=== PATIENT | male | born 1995 | race Caucasian/White ===

== ENCOUNTER → 2016-04-03 | Outpatient (CLI) | payer OTHER ==
--- NOTE | 2016-04-04 07:46 | XR ---
EXAMINATION TYPE: XR chest 2V DATE OF EXAM: 04/03/2016 4:44 PM COMPARISON: NONE HISTORY: Cough FINDINGS: The lungs are clear and there is no pneumothorax, pleural effusion, or focal pneumonia. IMPRESSION: 1. No acute process.
== END | disposition home or self-care (01) ==
LOC: RADXRYALE 16:33
PROVIDERS: ATTEND Internal Medicine
DX: R05 Cough (principal)
CPT/HCPCS: 71020

== ENCOUNTER 2018-09-25 13:25 | Emergency (ER) | payer SELFPAY ==
[2018-09-25 13:56] VITALS: BP 113/70; PULSE 54; RESP 16; TEMP 98
--- NOTE | 2018-09-25 15:41 | CT ---
EXAMINATION TYPE: CT brain wo con DATE OF EXAM: 09/25/2018 COMPARISON: None HISTORY: Left frontal injury 2 days ago. Dizziness, headache and blurred vision. CT DLP: 1099.4 mGycm. Automated Exposure Control for Dose Reduction was Utilized. TECHNIQUE: CT scan of the head is performed without contrast. FINDINGS: There is no acute intracranial hemorrhage, mass effect, or midline shift identified. The ventricles and sulci are within normal limits in size. The globes are intact and the visualized sin uses are clear. Prominent posterior fossa arachnoid cyst, or giant cisterna magna noted. IMPRESSION: No acute intracranial hemorrhage, mass effect, or midline shift is seen. Prominent posterior fossa cy st differential diagnosis includes giant cisterna magna versus arachnoid cyst.
[2018-09-25] MEDS ORDERED: KETOROLAC 60 MG/2 ML VIAL IM STA (15:58)
--- NOTE | 2018-09-25 16:31 | ED ---
Headache HPI - General Chief Complaint: Headache Stated Complaint: Headache, head injury 2 days ago Time Seen by Provider: 09/25/18 14:16 Mode of arrival: ambulatory Limitations: no limitations - History of Present Illness Initial Comments: 23-year-old male presenting today for chief complaint of headache after head injury. Patient states he struck the left side of his forehead 2 days prior at work. He states it was when he went from sitting to standing and hit his head on a metal object. Denies laceration loss of consciousness. He states that he has had a headache since that seemed to increase yesterday. Patient is primary care provider who recommended transfer to the emergency department for further evaluation recommending CT scan of the head. Patient denies any vomiting. He denies nausea neck pain or fall. Denies visual changes speech changes weakness of the upper or lower extremities or any sensation deficits. Patient appears well upon arrival no other complaints. Patient is accompanied by his mother. - Related Data Home Medications Medication Instructions Recorded Confirmed Acetaminophen Tab [Tylenol Tab] 1,000 mg PO Q6HR PRN 09/25/18 09/25/18 Allergies Allergy/AdvReac Type Severity Reaction Status Date / Time No Known Allergies Allergy Verified 09/25/18 14:16 Review of Systems ROS Statement: Those systems with pertinent positive or pertinent negative responses have been documented in the HPI. ROS Other: All systems not noted in ROS Statement are negative. Past Medical History Past Medical History: Asthma History of Any Multi-Drug Resistant Organisms: None Reported Past Surgical History: No Surgical Hx Reported Past Psychological History: No Psychological Hx Reported Smoking Status: Current every day smoker Past Alcohol Use History: Occasional Past Drug Use History: Marijuana General Exam - General Exam Comments Initial Comments: General: The patient is awake and alert, in no distress, and does not appear acutely ill. Eye: +3 mm pupils are equal, round and reactive to light, extra-ocular movements are intact. No nystagmus. There is normal conjunctiva bilaterally. No signs of icterus. Ears, nose, mouth and throat: There are moist mucous membranes and no oral lesions. Neck: The neck is supple, there is no tenderness or JVD. Cardiovascular: There is a regular rate and rhythm. No murmur, rub or gallop is appreciated. Respiratory: Lungs are clear to auscultation, respirations are non-labored, breath sounds are equal. No wheezes, stridor, rales, or rhonchi. Musculoskeletal: Normal ROM, no tenderness. Strength 5/5. Sensation intact. Pulses equal bilaterally 2+. Neurological: A&O x 3. CN II-XII intact, memory intact to immediately, intermediate and prison recall. Able to follow simple verbal. Able to name a common object (pen). High quality, labial (pa) and lingual (la) speech. Low quality posterior pharynx/larynx (ga) voice sounds. Able to express general knowledge (days in a week). No hemineglect or inattention noted. Finger agnosia (-) and spatially oriented (identified L index finger touched R shoulder with L index finger). Light touch and temperature sensation present over the face, chest, abdomen, back, UE bilaterally, and LE bilaterally. Able to localize point during point localization b/l and extinction. No visible bulk atrophy, hypertrophy, fasciculations, or myoclonus of the UE or LE b/l. Full PROM in UE and LE b/l. Bilateral muscle strength 5/5 for the following muscles: deltoid, biceps, triceps, brachioradialis, wrist extensors/flexor, hip flexor, hip abductors/adductors, hamstrings, quadriceps, feet dorsiflexors/plantar flexors. Finger to nose, finger to the examiners finger, and heel to gupta coordinated and accurate b/l. Coordinated and even demonstration of hand flip, finger to thumb, and toe tap b/l.(-) primitive reflexes. Gait is coordinated and even in stride with tandem, toe and heel walk. Maintains balance with monopedal stance. (-) Romberg. (-) pronator drift. No nuchal rigidity. Skin: Skin is warm and dry and no rashes or lesions are noted. Psychiatric: Cooperative, appropriate mood & affect, normal judgment. Limitations: no limitations Course Vital Signs 09/25/18 13:50 Temperature 98.0 F Pulse Rate 54 L Respiratory 16 Rate Blood Pressure 113/70 O2 Sat by Pulse 100 Oximetry Medical Decision Making - Medical Decision Making 23-year-old male presenting for evaluation of headache. Patient states it began after head injury. Patient denies vomiting visual changes. No focal neurological deficits on extensive neurological examination. Patient states that he was sent for a CT of his brain. CT of the brain revealed incidental finding of a enlarged cisterna versus a subarachnoid cyst. I did discuss this finding with patient as well as appropriate follow-up with primary care provider. Otherwise at this time patient states that his headache has been completely alleviated by Toradol. He states he is ready to go home. No additional complaints. Patient appears well. I discussed return parameters patient verbalizes understanding. Discussed the case with him provider Dr. Jenkins was agreeable care plan and discharge. Disposition Clinical Impression: Headache, Head injury, Concussion Disposition: HOME SELF-CARE Condition: Good Instructions (If sedation given, give patient instructions): Concussion (ED) Additional Instructions: Please use medication as discussed. Please follow-up with family doctor in the next 2 days, please contact sports or activities with increased risk of head injury. must be approved for contact sports by primary care provider and have repeat neuro exam and 48 hours. Please return to emergency room if the symptoms increase or worsen or for any other concerns. Is patient prescribed a controlled substance at d/c from ED?: No Referrals: Claudine Menjivar MD [Primary Care Provider] - 1-2 days Time of Disposition: 16:32
== END 2018-09-25 16:44 | disposition home or self-care (01) ==
LOC: EC 13:25
DX: S06.0X0A Concussion without loss of consciousness, initial encounter (principal); F17.200 Nicotine dependence, unspecified, uncomplicated; W22.8XXA Striking against or struck by other objects, initial encounter; Y92.69 Other specified industrial and construction area as the place of occurrence of the external cause; Y99.0 Civilian activity done for income or pay
CPT/HCPCS: 70450; 96372; 99283; J1885

== ENCOUNTER 2018-10-12 20:05 | Emergency (ER) | payer SELFPAY ==
[2018-10-12 20:24] VITALS: BP 124/71; PULSE 89; RESP 16; TEMP 98.6
[2018-10-12] MEDS ORDERED: KETOROLAC 30 MG/ML 1 ML VIAL IM STA (20:48)
--- NOTE | 2018-10-12 21:11 | ED ---
General Adult HPI - General Chief complaint: Extremity Injury, Upper Stated complaint: Left elbow pain Time Seen by Provider: 10/12/18 20:29 Source: patient Mode of arrival: ambulatory Limitations: no limitations - History of Present Illness Initial comments: Patient is a 23-year-old male presenting to emergency Department with a chief complaint of left elbow pain. Patient reports he was working on his car when the pliers he was using slipped and causing him to hit his elbow on the wheel Studs. Patient reports patient reports the pain is worse on the posterior aspect of the left elbow with a trauma code. Patient denies any abrasions or lacerations at the site of injury. Patient denies any numbness or tingling patient reports that he is unable to fully extend the elbow although he does have almost full range of motion in the elbow. Patient has full range of motion in the hand. Patient denies taking any medication to alleviate the symptoms. Patient denies any edema, erythema or skin discoloration. - Related Data Home Medications Medication Instructions Recorded Confirmed Acetaminophen Tab [Tylenol Tab] 1,000 mg PO Q6HR PRN 09/25/18 09/25/18 Allergies Allergy/AdvReac Type Severity Reaction Status Date / Time No Known Allergies Allergy Verified 10/12/18 20:24 Review of Systems ROS Statement: Those systems with pertinent positive or pertinent negative responses have been documented in the HPI. ROS Other: All systems not noted in ROS Statement are negative. Past Medical History Past Medical History: Asthma History of Any Multi-Drug Resistant Organisms: None Reported Past Surgical History: No Surgical Hx Reported Past Psychological History: No Psychological Hx Reported Smoking Status: Current every day smoker Past Alcohol Use History: Occasional Past Drug Use History: Marijuana General Exam - General Exam Comments Initial Comments: General: Well-developed well-nourished distress HEENT: Normocephalic/atraumatic, PERLL, pharynx erythema, swallowing well, EAC no erythema, no exudates, TM clear, no cervical lymph nodes Neck: Supple, nontender, trachea midline Chest/Lungs: Normal respirations, no signs of respiratory distress clear to auscultation bilaterally no wheezes, rales, rhonchi Cardiac: Regular rate and rhythm, normal S1-S2, no murmurs rubs or gallops Abdomen/GI: Soft nontender, bowel sounds equal or quadrant x4, no guarding, no rebound no CVA tenderness Musculoskeletal: Tenderness along the posterior lateral aspect of the left elbow, pain with palpation, limited range of motion with full extension, +2 uln ar radial pulses, no edema erythema or skin discoloration, no abrasions or lacerations, full range of motion in the hand. Skin: Warmth, no rashes or lesions, no cyanosis or diaphoresis Neurologic: AAO x 3, CN 2-12 intact, Psychiatric: Mood and affect normal, judgment normal Limitations: no limitations Course Vital Signs 10/12/18 20:22 Temperature 98.6 F Pulse Rate 89 Respiratory 16 Rate Blood Pressure 124/71 O2 Sat by Pulse 98 Oximetry Medical Decision Making - Medical Decision Making Patient is 23-year-old male presenting to emergency Department with a chief complaint of left elbow pain. X-ray of the left elbow is negative for acute fracture or dislocations. Based on history and physical examination and imaging I suspect the patient to have suffered a contusion to the left elbow. Mil wrap was applied and patient was given a sling. Patient advised to alternate between Tylenol and ibuprofen for pain control. Patient advised to apply ice compress to minimize symptoms. Strict return parameters were thoroughly discussed with patient and understanding and agreeable. Patient was to follow with orthopedic. Case discussed with physician. Disposition Clinical Impression: Contusion of elbow, left Disposition: HOME SELF-CARE Condition: Stable Instructions (If sedation given, give patient instructions): Elbow Sprain (ED) Additional Instructions: Alternate between Tylenol and ibuprofen for pain control. Apply ice compress to minimize symptoms. Please follow with orthopedics if symptoms not improved. Please return to emergency department if symptoms worsen. Is patient prescribed a controlled substance at d/c from ED?: No Referrals: Claudine Menjivar MD [Primary Care Provider] - 1-2 days Jp Dozier MD [STAFF PHYSICIAN] - 1-2 days Time of Disposition: 21:56
--- NOTE | 2018-10-12 21:17 | XR ---
EXAMINATION TYPE: XR elbow complete LT DATE OF EXAM: 10/12/2018 COMPARISON: NONE HISTORY: Elbow pain TECHNIQUE: 3 views FINDINGS: I see no fracture nor dislocation. Joint spaces are normal. There is no sign of elbow joint effusion. IMPRESSION: Negative left elbow exam.
== END 2018-10-12 22:06 | disposition home or self-care (01) ==
LOC: EC 20:05
DX: S50.02XA Contusion of left elbow, initial encounter (principal); F17.200 Nicotine dependence, unspecified, uncomplicated; W22.8XXA Striking against or struck by other objects, initial encounter; Y93.89 Activity, other specified; Y92.009 Unspecified place in unspecified non-institutional (private) residence as the place of occurrence of the external cause
CPT/HCPCS: 73080; 99283; 96372; J1885

== ENCOUNTER 2019-08-07 20:09 | Emergency (ER) | payer OTHER ==
[2019-08-07 20:24] VITALS: RESP 18; TEMP 96.9
[2019-08-07] MEDS ORDERED: SODIUM CHLORIDE 0.9% 1,000 ML IV ONE (21:24)
--- NOTE | 2019-08-07 22:03 | CT ---
EXAMINATION TYPE: CT brain jayine wo con DATE OF EXAM: 08/07/2019 COMPARISON: CT brain 09/25/2018 HISTORY: posterior head injury, headache Neck pain CT DLP: 1273.5 mGycm Automated exposure control for dose reduction was used. Ventricles and sulci appear normal. There is no mass effect nor midline shift. There is no sign of in tracranial hemorrhage. The calvarium is intact. There is large cisterna magna which is normal variati on. Skull base is intact. The cervical vertebra have normal spacing and alignment. Posterior elements are intact. Facet joints appear normal. IMPRESSION: Normal CT scan of the brain. Normal CT scan cervical spine.
[2019-08-07 22:06] VITALS: PULSE 57
[2019-08-07 22:38] LABS: Basophils # (A) 0.1 k/uL (0-0.2); Basophils % (A) 1 %; Eosinophils # (A) 0.6 k/uL (0-0.7); Eosinophils % (A) 7 %; HCT 46.7 % (39.0-53.0); HGB 15.2 gm/dL (13.0-17.5); Lymphocytes # (A) 3.4 k/uL (1.0-4.8); Lymphocytes % (A) 44 %; MCH 31.3 pg (25.0-35.0); MCHC 32.4 g/dL (31.0-37.0); MCV 96.4 fL (80.0-100.0); Monocytes # (A) 0.4 k/uL (0-1.0); Monocytes % (A) 5 %; Neutrophils # (A) 3.1 k/uL (1.3-7.7); Neutrophils % (A) 40 %; Platelet Count 183 k/uL (150-450); RBC 4.85 m/uL (4.30-5.90); RDW 12.4 % (11.5-15.5); WBC 7.7 k/uL (3.8-10.6)
[2019-08-07 22:45] VITALS: BP 121/71
[2019-08-07 22:46] LABS: ALT 14 U/L (4-49); AST 40 U/L (17-59); African American GFR (CKD) >90 (>60 ml/min/1.73 sqM); Albumin 4.5 g/dL (3.5-5.0); Alkaline Phosphatase 68 U/L (38-126); Anion Gap 8 mmol/L; Blood Urea Nitrogen 15 mg/dL (9-20); Calcium 9.6 mg/dL (8.4-10.2); Carbon Dioxide 23 mmol/L (22-30); Chloride 106 mmol/L (98-107); Glucose 91 mg/dL (74-99); Magnesium 1.8 mg/dL (1.6-2.3); Non-African American GFR(CKD) >90 (>60 ml/min/1.73 sqM); Phosphorus 3.7 mg/dL (2.5-4.5); Potassium 4.1 mmol/L (3.5-5.1); Sodium 137 mmol/L (137-145); Total Bilirubin 1.1 mg/dL (0.2-1.3); Total Protein 7.7 g/dL (6.3-8.2)
[2019-08-07 23:07] LABS: Appearance,Urine Clear (Clear); Bilirubin,Urine Negative (Negative); Blood,Urine Negative (Negative); Color,Urine Light Yellow; Glucose,Urine (UA) Negative (Negative); Ketones,Urine Negative (Negative); Leukocyte Esterase,Urine Negative (Negative); Nitrite,Urine Negative (Negative); Protein,Urine Negative (Negative); Specific Gravity,Urine 1.008 (1.001-1.035); Urobilinogen,Urine <2.0 mg/dL (<2.0)
[2019-08-07 23:21] LABS: Amphetamine Screen,Urine Not Detected (NotDetected); Barbiturate Screen,Urine Not Detected (NotDetected); Benzodiazepines Screen,Urine Not Detected (NotDetected); Cocaine Screen,Urine Not Detected (NotDetected); Methadone Screen, Urine Not Detected (NotDetected); Opiate Screen,Urine Not Detected (NotDetected); Oxycodone Screen, Urine Not Detected (NotDetected); Phencyclidine Screen,Urine Not Detected (NotDetected); Tricyclic Antidepressant,Urine Not Detected (NotDetected); Urn Cannabinoid Scrn Detected (NotDetected)
--- NOTE | 2019-08-08 00:21 | ED ---
General Adult HPI - General Chief complaint: Head Injury Stated complaint: Syncope Time Seen by Provider: 08/07/19 21:06 Source: patient, RN notes reviewed, old records reviewed Mode of arrival: ambulatory Limitations: no limitations - History of Present Illness Initial comments: 24-year-old male patient presents to ED for evaluation of head injury. Patient reports that 2 days ago he was pulling on a wrench when slipped free. Patient reports that he pulled his head back to avoid being had any hit the back of his head on a piece of metal. Patient denies any loss of consciousness but does report that he has had some dizziness and some very mild waxing and waning blurry vision. 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 He reports that after exerting himself he was walking to leave and he began to feel very dizzy. Patient reports that he sat down on the ground had some blurred vision and his legs are weak when he tried to stand. This lasted approximately half an hour. Reportedly then felt better and went home. Patient states that he had a very mild headache this morning which is since resolved. Also some mild blurred vision which resolved. Denies any current complaints at this time. Systemic: Pt denies fatigue, fever/chills, rash. Pt denies weakness, night sweats, weight loss. Neuro: Pt denies headache, syncope. HEENT: Pt denies ocular discharge or irritation, otalgia, rhinorrhea, phary ngitis or notable lymphadenopathy. Cardiopulmonary: Pt denies chest pain, SOB, heart palpitations, dyspnea on exertion. Abdominal/GI: Pt denies abdominal pain, n/v/d. : Pt denies dysuria, burning w/ urination, frequency/urgency. Denies new onset urinary or bowel incontinence. MSK: Pt denies myalgia, loss of strength or function in extremities. Neuro: Pt denies new onset weakness, paresthesias. - Related Data Home Medications Medication Instructions Recorded Confirmed Acetaminophen Tab [Tylenol Tab] 1,000 mg PO Q6HR PRN 09/25/18 09/25/18 Allergies Allergy/AdvReac Type Severity Reaction Status Date / Time No Known Allergies Allergy Verified 08/07/19 20:24 Review of Systems ROS Statement: Those systems with pertinent positive or pertinent negative responses have been documented in the HPI. ROS Other: All systems not noted in ROS Statement are negative. Past Medical History Past Medical History: Asthma History of Any Multi-Drug Resistant Organisms: None Reported Past Surgical History: No Surgical Hx Reported Past Psychological History: No Psychological Hx Reported Smoking Status: Current every day smoker Past Alcohol Use History: Occasional Past Drug Use History: Marijuana General Exam - General Exam Comments Initial Comments: Constitutional: NAD, AOX3, Pt has pleasant affect. HEENT: NC/AT, trachea midline, neck supple, no lymphadenopathy. Posterior pharynx non erythematous, without exudates. External ears appear normal, without discharge. Mucous membranes moist. Eyes PERRLA, EOM intact. There is no scleral icterus. No pallor noted. Cardiopulmonary: RRR, no murmurs, rubs or gallops, no JVD noted. Lungs CTAB in anterior and posterior emery. No peripheral edema. Abdominal exam: Abdomen soft and non-distended. Abdomen non-tender to palpation in all 4 quadrants. Bowel sounds active in LLQ. No hepatosplenomegaly. No ecchymosis Neuro: CN II-XII intact. No nuchal rigidity. No raccon eyes, no piña sign. No cervical spinal tenderness. MSK: No posterior calf tenderness bilaterally, homans sign negative bilaterally. Posterior tibialis and radial pulse +2 bilaterally. Sensation intact in upper and lower extremities. Full active ROM in upper and lower extremities, 5/5 stregnth. Limitations: no limitations Course Vital Signs 08/07/19 08/07/19 08/07/19 20:22 21:51 22:00 Temperature 96.9 F L Pulse Rate 93 60 58 L Respiratory 18 Rate Blood Pressure 119/77 124/85 124/85 O2 Sat by Pulse 100 98 98 Oximetry 08/07/19 08/07/19 22:05 22:30 Temperature Pulse Rate 57 L 57 L Respiratory 18 Rate Blood Pressure 121/70 121/71 O2 Sat by Pulse 98 97 Oximetry Medical Decision Making - Medical Decision Making 24-year-old male patient presents to ED for evaluation of head injury. Patient reports that 2 days ago he was pulling on a wrench when slipped free. Patient reports that he pulled his head back to avoid being had any hit the back of his head on a piece of metal. Patient denies any loss of consciousness but does report that he has had some dizziness and some very mild waxing and waning blurry vision. 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 He reports that after exerting himself he was walking to leave and he began to feel very dizzy. Patient reports that he sat down on the ground had some blurred vision and his legs are weak when he tried to stand. This lasted approximately half an hour. Reportedly then felt better and went home. Patient states that he had a very mild headache this morning which is since resolved. Also some mild blurred vision which resolved. Denies any current complaints at this time. Patient will signs are stable, afebrile. Physical exam did not display acute pathology. Neurologic exam is intact. Repeat neurologic exam prior discharged is also intact. Laboratory investigations are nonimmpressive. Tox screen is positive for THC. CT brain C- spine did not display acute process. Patient states that he is not having any complaints at this time. Patient discharged to follow up with primary care provider and will return to ER if condition worsens. Case discussed with Dr. Bautista. - Lab Data Result diagrams: 08/07/19 22:00 08/07/19 22:00 Lab Results 08/07/19 08/07/19 08/07/19 Range/Units 22:00 22:00 22:00 WBC 7.7 (3.8-10.6) k/uL RBC 4.85 (4.30-5.90) m/uL Hgb 15.2 (13.0-17.5) gm/dL Hct 46.7 (39.0-53.0) % MCV 96.4 (80.0-100.0) fL MCH 31.3 (25.0-35.0) pg MCHC 32.4 (31.0-37.0) g/dL RDW 12.4 (11.5-15.5) % Plt Count 183 (150-450) k/uL Neutrophils % 40 % Lymphocytes % 44 % Monocytes % 5 % Eosinophils % 7 % Basophils % 1 % Neutrophils # 3.1 (1.3-7.7) k/uL Lymphocytes # 3.4 (1.0-4.8) k/uL Monocytes # 0.4 (0-1.0) k/uL Eosinophils # 0.6 (0-0.7) k/uL Basophils # 0.1 (0-0.2) k/uL Sodium 137 (137-145) mmol/L Potassium 4.1 (3.5-5.1) mmol/L Chloride 106 (98-107) mmol/L Carbon Dioxide 23 (22-30) mmol/L Anion Gap 8 mmol/L BUN 15 (9-20) mg/dL Creatinine 0.84 (0.66-1.25) mg/dL Est GFR (CKD-EPI)AfAm >90 (>60 ml/min/1.73 sqM) Est GFR (CKD-EPI)NonAf >90 (>60 ml/min/1.73 sqM) Glucose 91 (74-99) mg/dL Calcium 9.6 (8.4-10.2) mg/dL Phosphorus 3.7 (2.5-4.5) mg/dL Magnesium 1.8 (1.6-2.3) mg/dL Total Bilirubin 1.1 (0.2-1.3) mg/dL AST 40 (17-59) U/L ALT 14 (4-49) U/L Alkaline Phosphatase 68 (38-126) U/L Troponin I <0.012 (0.000-0.034) ng/mL Total Protein 7.7 (6.3-8.2) g/dL Albumin 4.5 (3.5-5.0) g/dL Urine Color Urine Appearance (Clear) Urine pH (5.0-8.0) Ur Specific [place] (1.001-1.035) Urine Protein (Negative) Urine Glucose (UA) (Negative) Urine Ketones (Negative) Urine Blood (Negative) Urine Nitrite (Negative) Urine Bilirubin (Negative) Urine Urobilinogen (<2.0) mg/dL Ur Leukocyte Esterase (Negative) Urine Opiates Screen (NotDetected) Ur Oxycodone Screen (NotDetected) Urine Methadone Screen (NotDetected) Ur Propoxyphene Screen (NotDetected) Ur Barbiturates Screen (NotDetected) U Tricyclic Antidepress (NotDetected) Ur Phencyclidine Scrn (NotDetected) Ur Amphetamines Screen (NotDetected) U Methamphetamines Scrn (NotDetected) U Benzodiazepines Scrn (NotDetected) Urine Cocaine Screen (NotDetected) U Marijuana (THC) Screen (NotDetected) 08/07/19 Range/Units 22:59 WBC (3.8-10.6) k/uL RBC (4.30-5.90) m/uL Hgb (13.0-17.5) gm/dL Hct (39.0-53.0) % MCV (80.0-100.0) fL MCH (25.0-35.0) pg MCHC (31.0-37.0) g/dL RDW (11.5-15.5) % Plt Count (150-450) k/uL Neutrophils % % Lymphocytes % % Monocytes % % Eosinophils % % Basophils % % Neutrophils # (1.3-7.7) k/uL Lymphocytes # (1.0-4.8) k/uL Monocytes # (0-1.0) k/uL Eosinophils # (0-0.7) k/uL Basophils # (0-0.2) k/uL Sodium (137-145) mmol/L Potassium (3.5-5.1) mmol/L Chloride (98-107) mmol/L Carbon Dioxide (22-30) mmol/L Anion Gap mmol/L BUN (9-20) mg/dL Creatinine (0.66-1.25) mg/dL Est GFR (CKD-EPI)AfAm (>60 ml/min/1.73 sqM) Est GFR (CKD-EPI)NonAf (>60 ml/min/1.73 sqM) Glucose (74-99) mg/dL Calcium (8.4-10.2) mg/dL Phosphorus (2.5-4.5) mg/dL Magnesium (1.6-2.3) mg/dL Total Bilirubin (0.2-1.3) mg/dL AST (17-59) U/L ALT (4-49) U/L Alkaline Phosphatase (38-126) U/L Troponin I (0.000-0.034) ng/mL Total Protein (6.3-8.2) g/dL Albumin (3.5-5.0) g/dL Urine Color Light Yellow Urine Appearance Clear (Clear) Urine pH 6.0 (5.0-8.0) Ur Specific [place] 1.008 (1.001-1.035) Urine Protein Negative (Negative) Urine Glucose (UA) Negative (Negative) Urine Ketones Negative (Negative) Urine Blood Negative (Negative) Urine Nitrite Negative (Negative) Urine Bilirubin Negative (Negative) Urine Urobilinogen <2.0 (<2.0) mg/dL Ur Leukocyte Esterase Negative (Negative) Urine Opiates Screen Not Detected (NotDetected) Ur Oxycodone Screen Not Detected (NotDetected) Urine Methadone Screen Not Detected (NotDetected) Ur Propoxyphene Screen Not Detected (NotDetected) Ur Barbiturates Screen Not Detected (NotDetected) U Tricyclic Antidepress Not Detected (NotDetected) Ur Phencyclidine Scrn Not Detected (NotDetected) Ur Amphetamines Screen Not Detected (NotDetected) U Methamphetamines Scrn Not Detected (NotDetected) U Benzodiazepines Scrn Not Detected (NotDetected) Urine Cocaine Screen Not Detected (NotDetected) U Marijuana (THC) Screen Detected H (NotDetected) - EKG Data -: EKG Interpreted by Me (and Dr. Bautista ) EKG Comments: Ventricular rate 57, NE interval 134, QRS 100, QT/QTC 398/37. Sinus bradycardia, rightward axis, borderline EKG. No concern for acute ischemia at this time. Disposition Clinical Impression: Concussion Disposition: HOME SELF-CARE Condition: Stable Instructions (If sedation given, give patient instructions): Concussion (ED) Additional Instructions: Follow up with primary care provider tomorrow. Return to ER if condition worsens in any way. Is patient prescribed a controlled substance at d/c from ED?: No Referrals: Claudine Menjivar MD [Primary Care Provider] - 1-2 days
== END 2019-08-08 01:01 | disposition home or self-care (01) ==
LOC: EC 20:09
DX: S06.0X0A Concussion without loss of consciousness, initial encounter (principal); F17.200 Nicotine dependence, unspecified, uncomplicated; F12.90 Cannabis use, unspecified, uncomplicated; W01.198A Fall on same level from slipping, tripping and stumbling with subsequent striking against other object, initial encounter; Y93.89 Activity, other specified
CPT/HCPCS: 36415; 70450; 72125; 80053; 80306; 81003; 83735; 84100; 84484; 85025; 93005; 96360; 99284

== ENCOUNTER 2019-08-25 14:21 | Emergency (ER) | payer OTHER ==
[2019-08-25 14:28] VITALS: BP 107/62; PULSE 59; RESP 18; TEMP 98
[2019-08-25] MEDS ORDERED: KETOROLAC 30 MG/ML 1 ML VIAL IM STA (14:46)
--- NOTE | 2019-08-25 14:52 | ED ---
General Adult HPI - General Chief complaint: Recheck/Abnormal Lab/Rx Stated complaint: IHS-head injury 2 wks ago Time Seen by Provider: 08/25/19 14:31 Source: patient, RN notes reviewed Mode of arrival: ambulatory Limitations: no limitations - History of Present Illness Initial comments: 24-year-old male presents to the emergency determine for chief complaint of headache. Patient states he has had a headache 2-3 weeks. States this started after he hit his head. Patient states 2-3 weeks ago he was using a wrench when it slipped and he hit his head on a piece of metal. He was evaluated at that time and had a negative CT brain on August 06. Patient did follow up with his doctor who cleared him to return to work lower patient states his headache is persistent. He has not tried taking any Motrin or Tylenol for pain. He has not followed up with his doctor again. He denies any visual changes. Patient has no other complaints at this time including shortness of breath, chest pain, abdominal pain, nausea or vomiting, or visual changes. - Related Data Home Medications Medication Instructions Recorded Confirmed Acetaminophen Tab [Tylenol Tab] 1,000 mg PO Q6HR PRN 09/25/18 09/25/18 Allergies Allergy/AdvReac Type Severity Reaction Status Date / Time No Known Allergies Allergy Verified 08/25/19 14:27 Review of Systems ROS Statement: Those systems with pertinent positive or pertinent negative responses have been documented in the HPI. ROS Other: All systems not noted in ROS Statement are negative. Past Medical History Past Medical History: Asthma History of Any Multi-Drug Resistant Organisms: None Reported Past Surgical History: No Surgical Hx Reported Past Psychological History: No Psychological Hx Reported Smoking Status: Current every day smoker Past Alcohol Use History: Occasional Past Drug Use History: Marijuana General Exam Limitations: no limitations General appearance: alert, in no apparent distress Head exam: Present: atraumatic, normocephalic, normal inspection Eye exam: Present: normal appearance, PERRL, EOMI. Absent: scleral icterus, conjunctival injection, periorbital swelling ENT exam: Present: normal exam, mucous membranes moist Neck exam: Present: normal inspection, full ROM. Absent: tenderness, meningismus, lymphadenopathy Respiratory exam: Present: normal lung sounds bilaterally. Absent: respiratory distress, wheezes, rales, rhonchi, stridor Cardiovascular Exam: Present: regular rate, normal rhythm, normal heart sounds. Absent: systolic murmur, diastolic murmur, rubs, gallop, clicks Neurological exam: Present: alert, oriented X3, CN II-XII intact, normal gait, other (GCS 15) Course Vital Signs 08/25/19 14:25 Temperature 98 F Pulse Rate 59 L Respiratory 18 Rate Blood Pressure 107/62 O2 Sat by Pulse 99 Oximetry Medical Decision Making - Medical Decision Making Patient presents for ongoing headache for 2-3 weeks after hitting his head. Patient was evaluated at that time had a negative CT brain. Patient has already been cleared to return to work by his primary care but states he still has a headache from this. Patient has not tried any medication such as Motrin or Tylenol for pain. He has not followed back up with his doctor. I discussed brain rest which he and his mother states she is unable to do because he is not someone who can sit still. He initially wanted repeat computed tomography scan however I discussed the risks versus benefits of this and recommended he follow- up with his primary care provider and concussion clinic. I will give phone number for this. He will be given another 2 days off work. He will return here for any worsening symptoms. I discussed Motrin and Tylenol for pain as well as as much brain rest as possible. Disposition Clinical Impression: Headache, Concussion Disposition: HOME SELF-CARE Condition: Good Instructions (If sedation given, give patient instructions): Concussion (ED) Additional Instructions: Please try to rest as much as possible. Take Motrin and Tylenol for pain. You may alternate these up to every 3 hours. Follow-up with your primary care provider. He may also follow up at concussion clinic. Return here to the emergency room for any worsening symptoms. Phone number to [facility] [place] [facility]: . Is patient prescribed a controlled substance at d/c from ED?: No Referrals: Claudine Menjivar MD [Primary Care Provider] - 1-2 days Time of Disposition: 14:49
== END 2019-08-25 15:20 | disposition home or self-care (01) ==
LOC: EC 14:21
DX: S06.0X0A Concussion without loss of consciousness, initial encounter (principal); F17.200 Nicotine dependence, unspecified, uncomplicated; W22.8XXA Striking against or struck by other objects, initial encounter
CPT/HCPCS: 99283; 96372; J1885

== ENCOUNTER 2020-04-05 15:57 | Emergency (ER) | payer SELFPAY ==
[2020-04-05 16:10] VITALS: RESP 18; TEMP 98.9
[2020-04-05] MEDS ORDERED: ONDANSETRON 4 MG/2 ML VIAL IVP STA (16:48)
[2020-04-05] MEDS ORDERED: SODIUM CHLORIDE 0.9% 500 ML 500 ML IV STA (16:48)
[2020-04-05] MEDS ORDERED: DIPHENOX-ATROP 2.5-0.025 MG 1 EACH TAB PO STA (16:48)
[2020-04-05 17:07] LABS: Basophils % (A) 0 %; Eosinophils # (A) 0.1 k/uL (0-0.7); Eosinophils % (A) 1 %; HCT 48.5 % (39.0-53.0); HGB 16.5 gm/dL (13.0-17.5); Lymphocytes % (A) 9 %; MCH 32.8 pg (25.0-35.0); MCHC 34.1 g/dL (31.0-37.0); MCV 96.3 fL (80.0-100.0); Mean Platelet Volume 6.9; Monocytes # (A) 0.3 k/uL (0-1.0); Monocytes % (A) 2 %; Neutrophils # (A) 9.6 k/uL (1.3-7.7); Neutrophils % (A) 87 %; Platelet Count 190 k/uL (150-450); RBC 5.04 m/uL (4.30-5.90); RDW 12.7 % (11.5-15.5)
--- NOTE | 2020-04-05 17:16 | ED ---
General Adult HPI - General Chief complaint: Nausea/Vomiting/Diarrhea Stated complaint: left side abd pain Time Seen by Provider: 04/05/20 16:10 Source: patient, RN notes reviewed, old records reviewed Mode of arrival: ambulatory Limitations: no limitations - History of Present Illness Initial comments: This is a 24-year-old male who presents emergency Department with no significant past medical history. Patient states he started having some left-sided sharp pains and after that he started having diarrhea and vomiting. Patient is started this morning and has been continuous since. Patient states anytime he drinks of the vomitus per patient states the pain is currently gone. Patient denies any fever chills per patient denies any blood in the emesis or stool. Patient denies any back pain. Patient denies any dysuria hematuria urinary frequency. Patient denies any chest pain difficult breathing shortest breath. - Related Data Home Medications Medication Instructions Recorded Confirmed Acetaminophen Tab [Tylenol Tab] 1,000 mg PO Q6HR PRN 09/25/18 09/25/18 Allergies Allergy/AdvReac Type Severity Reaction Status Date / Time No Known Allergies Allergy Verified 04/05/20 16:10 Review of Systems ROS Statement: Those systems with pertinent positive or pertinent negative responses have been documented in the HPI. ROS Other: All systems not noted in ROS Statement are negative. Past Medical History Past Medical History: Asthma History of Any Multi-Drug Resistant Organisms: None Reported Past Surgical History: No Surgical Hx Reported Past Psychological History: No Psychological Hx Reported Smoking Status: Current every day smoker Past Alcohol Use History: Occasional Past Drug Use History: Marijuana General Exam - General Exam Comments Initial Comments: GENERAL: Patient is well-developed and well-nourished. Patient is nontoxic and well- hydrated and is in no acute distress. ENT: Neck is soft and supple. No significant lymphadenopathy is noted. Oropharynx is clear. Moist mucous membranes. Neck has full range of motion without eliciting any pain. EYES: The sclera were anicteric and conjunctiva were pink and moist. Extraocular movements were intact and pupils were equal round and reactive to light. Eyelids were unremarkable. PULMONARY: Unlabored respirations. Good breath sounds bilaterally. No audible rales rhonchi or wheezing was noted. CARDIOVASCULAR: There is a regular rate and rhythm without any murmurs gallops or rubs. ABDOMEN: Soft and nontender with normal bowel sounds. SKIN: Skin is clear with no lesions or rashes and otherwise unremarkable. NEUROLOGIC: Patient is alert and oriented x3. Cranial nerves II through XII are grossly intact. Motor and sensory are also intact. Normal speech, volume and content. Symmetrical smile. MUSCULOSKELETAL: Normal extremities with adequate strength and full range of motion. LYMPHATICS: No significant lymphadenopathy is noted PSYCHIATRIC: Normal psychiatric evaluation. Limitations: no limitations Course Vital Signs 04/05/20 16:08 Temperature 98.9 F Pulse Rate 92 Respiratory 18 Rate Blood Pressure 116/68 O2 Sat by Pulse 97 Oximetry Medical Decision Making - Medical Decision Making Patient had no vomiting or diarrhea in the emergency department. I will back and reexamined the patient his abdomen was nontender - Lab Data Result diagrams: 04/05/20 17:02 04/05/20 17:02 Lab Results 04/05/20 04/05/20 Range/Units 17:02 17:02 WBC 11.0 H (3.8-10.6) k/uL RBC 5.04 (4.30-5.90) m/uL Hgb 16.5 (13.0-17.5) gm/dL Hct 48.5 (39.0-53.0) % MCV 96.3 (80.0-100.0) fL MCH 32.8 (25.0-35.0) pg MCHC 34.1 (31.0-37.0) g/dL RDW 12.7 (11.5-15.5) % Plt Count 190 (150-450) k/uL MPV 6.9 Neutrophils % 87 % Lymphocytes % 9 % Monocytes % 2 % Eosinophils % 1 % Basophils % 0 % Neutrophils # 9.6 H (1.3-7.7) k/uL Lymphocytes # 1.0 (1.0-4.8) k/uL Monocytes # 0.3 (0-1.0) k/uL Eosinophils # 0.1 (0-0.7) k/uL Basophils # 0.0 (0-0.2) k/uL Sodium 136 L (137-145) mmol/L Potassium 4.0 (3.5-5.1) mmol/L Chloride 100 (98-107) mmol/L Carbon Dioxide 24 (22-30) mmol/L Anion Gap 12 mmol/L BUN 14 (9-20) mg/dL Creatinine 0.81 (0.66-1.25) mg/dL Est GFR (CKD-EPI)AfAm >90 (>60 ml/min/1.73 sqM) Est GFR (CKD-EPI)NonAf >90 (>60 ml/min/1.73 sqM) Glucose 106 H (74-99) mg/dL Calcium 10.0 (8.4-10.2) mg/dL Total Bilirubin 1.3 (0.2-1.3) mg/dL AST 27 (17-59) U/L ALT 20 (4-49) U/L Alkaline Phosphatase 83 (38-126) U/L Total Protein 8.8 H (6.3-8.2) g/dL Albumin 5.1 H (3.5-5.0) g/dL Amylase 62 (30-110) U/L Lipase 40 (23-300) U/L Disposition Clinical Impression: Gastroenteritis Disposition: HOME SELF-CARE Instructions (If sedation given, give patient instructions): Gastroenteritis (ED) Is patient prescribed a controlled substance at d/c from ED?: No Referrals: Claudine Menjivar MD [Primary Care Provider] - 1-2 days Time of Disposition: 17:29
[2020-04-05 17:20] LABS: ALT 20 U/L (4-49); AST 27 U/L (17-59); African American GFR (CKD) >90 (>60 ml/min/1.73 sqM); Albumin 5.1 g/dL (3.5-5.0); Alkaline Phosphatase 83 U/L (38-126); Amylase 62 U/L (30-110); Anion Gap 12 mmol/L; Blood Urea Nitrogen 14 mg/dL (9-20); Carbon Dioxide 24 mmol/L (22-30); Chloride 100 mmol/L (98-107); Glucose 106 mg/dL (74-99); Lipase 40 U/L (23-300); Non-African American GFR(CKD) >90 (>60 ml/min/1.73 sqM); Sodium 136 mmol/L (137-145); Total Bilirubin 1.3 mg/dL (0.2-1.3); Total Protein 8.8 g/dL (6.3-8.2)
[2020-04-05] MEDS ORDERED: DIPHENOX-ATROP STARTER PACK 8 TAB BTL PO STA (17:29)
[2020-04-05] MEDS ORDERED: ONDANSETRON 4 MG ODT STARTER PACK 2 TAB BTL PO STA (17:29)
[2020-04-05 18:34] VITALS: BP 122/70; PULSE 71
== END 2020-04-05 18:10 | disposition home or self-care (01) ==
LOC: EC 15:57
DX: K52.9 Noninfective gastroenteritis and colitis, unspecified (principal); F17.200 Nicotine dependence, unspecified, uncomplicated
CPT/HCPCS: 36415; 80053; 82150; 83690; 85025; 99284; 96374; J2405; S0119

== ENCOUNTER 2021-08-12 17:32 | Emergency (ER) | payer OTHER ==
[2021-08-12 18:55] VITALS: BP 129/77; PULSE 68; RESP 16; TEMP 98.4
--- NOTE | 2021-08-12 19:12 | XR ---
EXAMINATION TYPE: XR hand complete LT DATE OF EXAM: 08/12/2021 COMPARISON: NONE HISTORY: Injury and pain TECHNIQUE: 3 views FINDINGS: There is fracture of the tuft of the distal phalanx of the little finger left hand. There i s some comminution. No evidence of a foreign body. IMPRESSION: Comminuted tuft fracture of the little finger as above.
[2021-08-12] MEDS ORDERED: CEPHALEXIN 500 MG CAP PO STA (19:56)
[2021-08-12] MEDS ORDERED: LIDOCAINE 1% INJ 10MG/ML (5 ML VIAL-PF) SQ ONE (19:57)
[2021-08-12] MEDS ORDERED: BACITRACIN OINT 1 EACH PACKET TOPICAL ONE (20:24)
[2021-08-12] MEDS ORDERED: IBUPROFEN 600 MG STARTER PACK 4 TAB BTL PO STA (20:25)
[2021-08-12] MEDS ORDERED: ACET/COD 300 MG/30 MG STARTER PACK 6 TAB BTL PO STA (20:25)
[2021-08-12] MEDS ORDERED: CEPHALEXIN 500MG STARTER PACK 4 CAP BTL PO STA (20:25)
--- NOTE | 2021-08-12 20:33 | ED ---
Upper Extremity HPI - General Chief Complaint: Extremity Injury, Upper Stated Complaint: IHS-injury to fingers Time Seen by Provider: 08/12/21 19:56 Source: patient, RN notes reviewed Mode of arrival: ambulatory Limitations: no limitations - History of Present Illness Initial Comments: This is a pleasant, [id number] 26-year-old male who presents to emergency room after having his left fourth and fifth fingers crushed by a metal object at work. Patient complaining of pain to the distal aspect of the fingers. No seizures. No other injuries. Patient is up-to-date on immunizations. Pain is sharp in nature. Exacerbated by palpation and movement. Patient did sustain lacerations to the area. Patient is a cigarette smoker. No headache, no fever or chills, no changes in vision or hearing, no sore throat or difficulty with speech, no neck pain, no chest pain or shortness of breath, no abdominal pain, no nausea or vomiting, no changes in urination or bowel movements, no numbness or tingling, no skin rashes or lesions. MD Complaint: Injury to:: left - Related Data Home Medications Medication Instructions Recorded Confirmed Acetaminophen Tab [Tylenol Tab] 1,000 mg PO Q6HR PRN 09/25/18 09/25/18 Previous Rx's Medication Instructions Recorded Acetaminophen-Codeine 300-30mg 1 each PO Q6H PRN #12 tablet 08/12/21 [Tylenol w/codeine #3] Cephalexin [Keflex] 500 mg PO Q6HR #40 cap 08/12/21 Ibuprofen [Motrin] 600 mg PO Q8HR PRN #30 tab 08/12/21 Allergies Allergy/AdvReac Type Severity Reaction Status Date / Time No Known Allergies Allergy Verified 08/12/21 18:55 Review of Systems ROS Statement: Those systems with pertinent positive or pertinent negative responses have been documented in the HPI. ROS Other: All systems not noted in ROS Statement are negative. Past Medical History Past Medical History: Asthma History of Any Multi-Drug Resistant Organisms: None Reported Past Surgical History: No Surgical Hx Reported Past Psychological History: No Psychological Hx Reported Smoking Status: Current every day smoker Past Alcohol Use History: Occasional Past Drug Use History: Marijuana General Exam - General Exam Comments Initial Comments: Distress secondary to left fourth and fifth finger injury. Does not appear to be ill or toxic otherwise Limitations: no limitations General appearance: in distress Head exam: Present: atraumatic, normocephalic, normal inspection Eye exam: Present: normal appearance, PERRL, EOMI. Absent: scleral icterus, conjunctival injection, periorbital swelling ENT exam: Present: normal exam. Absent: mucous membranes dry Neck exam: Present: normal inspection, full ROM. Absent: tenderness, meningismus, lymphadenopathy Respiratory exam: Present: normal lung sounds bilaterally. Absent: respiratory distress, wheezes, rales, rhonchi, stridor Cardiovascular Exam: Present: regular rate, normal rhythm, normal heart sounds. Absent: systolic murmur, diastolic murmur, rubs, gallop, clicks GI/Abdominal exam: Present: soft. Absent: tenderness Left Forearm Wrist exam: Present: normal inspection, full ROM Hand Wrist exam: Present: full ROM, tenderness (Tender to the distal aspect of the left fourth and fifth fingers.), abrasion, laceration, other (Patient has a an irregular laceration to the distal aspect of the left little finger. This is very irregular with as well as subcutaneous tissue. Patient has multiple devitalize skin tears to both the ring finger and the little finger.). Absent: normal inspection, swelling, ecchymosis, deformity, crepitus, dislocation, erythema, amputation, nail avulsion, subungual hematoma Neuro motor exam: Present: thumb opposition intact, thumb IP flexion intact, thumb adduction intact, fingers 2-5 abduction intact Neurosensory exam: Present: radial nerve intact, ulnar nerve intact, median nerve intact Vascular: Present: normal capillary refill. Absent: vascular compromise, Pallo, pulse deficit radial art, pulse deficit ulnar art Course Vital Signs 08/12/21 18:53 Temperature 98.4 F Pulse Rate 68 Respiratory 16 Rate Blood Pressure 129/77 O2 Sat by Pulse 100 Oximetry Procedures - Laceration Laceration #1 Consent Obtained: verbal consent Site: upper extremity Size (cm): 3 Description: flap, avulsion, irregular Depth: simple, single layer Anesthetic Used: without epi Anesthesia Technique: nerve block (With bupivacaine 0.5%) Amount (mls): 5 Pre-repair: wound explored, irrigated extensively, deep structures intact, extensive debridement (Area debridement on the left fourth and fifth fingers with sterile scissors and forceps was 3 x 2 cm.) Size of Sutures: 5-0, other (Left little finger) Number of Sutures: 5 Technique: simple, interrupted Patient Tolerated Procedure: well, no complications Additional Comments: Multiple devitalized skin tears to the fourth and fifth fingers. Fourth finger did not require suturing. Devitalized tissue was debrided. Medical Decision Making - Medical Decision Making Patient counseled on wound care. Counseled on signs and symptoms of infection. Prophylactic antibiotics were given. Patient to follow-up with his regular physician Disposition Clinical Impression: Open fracture of phalanx of left little finger, Contusion of left ring finger, Laceration of left little finger without damage to nail, Skin tear Narrative: Skin tear left fourth and fifth fingers Disposition: HOME SELF-CARE Condition: Stable Instructions (If sedation given, give patient instructions): Laceration (ED), Finger Fracture (ED) Additional Instructions: Wash the wound daily with warm soap and water. Apply a layer of antibiotic ointment such as Neosporin or triple antibiotic ointment. Suture removal in 10 days or as directed by the occupational medicine clinic. Follow-up with [facility] or the occupational medicine clinic of your employer's choice in 2 days for wound check. Take antibiotics as directed. Wear the finger splint as directed. Keep your little finger cele taped to the ring finger. One-handed duty until the stitches are removed. Return to the ER immediately if any symptoms worsen, new symptoms arise, or any other problems develop. The number provided under Dr. Vázquez is actually to the [facility]. Prescriptions: Ibuprofen [Motrin] 600 mg PO Q8HR PRN #30 tab PRN Reason: Pain Acetaminophen-Codeine 300-30mg [Tylenol w/codeine #3] 1 each PO Q6H PRN #12 tablet PRN Reason: Pain Is patient prescribed a controlled substance at d/c from ED?: Yes When asked, does pt state using other controlled substances?: No If prescribed controlled substance>3 days was MAPS reviewed?: Prescribed <3 Days Referrals: Kelvin Vázquez DO [STAFF PHYSICIAN] - 08/14/21 ([facility]) Time of Disposition: 20:32
== END 2021-08-12 20:55 | disposition home or self-care (01) ==
LOC: EC 17:32
DX: S62.637B Displaced fracture of distal phalanx of left little finger, initial encounter for open fracture (principal); F17.210 Nicotine dependence, cigarettes, uncomplicated; F12.90 Cannabis use, unspecified, uncomplicated; W23.0XXA Caught, crushed, jammed, or pinched between moving objects, initial encounter
CPT/HCPCS: 12042; 99283

== ENCOUNTER 2022-02-23 13:02 | Emergency (ER) | payer OTHER ==
--- NOTE | 2022-02-23 14:09 | ED ---
General Adult HPI - General Chief complaint: Upper Respiratory Infection Stated complaint: headache Time Seen by Provider: 02/23/22 13:56 Source: patient, family, RN notes reviewed, old records reviewed Mode of arrival: ambulatory Limitations: no limitations - History of Present Illness Initial comments: This is a well-appearing 26-year-old male presents with complaints of nausea vomiting and diarrhea and headache for the past 2 days. Patient states his symptoms have resolved at this time. He took Pepto-Bismol yesterday with resolution. He states he is here for a work note for his employer. -: days(s) (2) Location: head, abdomen Severity scale (1-10): 0 Quality: aching Consistency: now resolved Improves with: other (pepto) - Related Data Home Medications Medication Instructions Recorded Confirmed Acetaminophen Tab [Tylenol Tab] 1,000 mg PO Q6HR PRN 09/25/18 09/25/18 Previous Rx's Medication Instructions Recorded Acetaminophen-Codeine 300-30mg 1 each PO Q6H PRN #12 tablet 08/12/21 [Tylenol w/codeine #3] Cephalexin [Keflex] 500 mg PO Q6HR #40 cap 08/12/21 Ibuprofen [Motrin] 600 mg PO Q8HR PRN #30 tab 08/12/21 Allergies Allergy/AdvReac Type Severity Reaction Status Date / Time No Known Allergies Allergy Verified 08/12/21 18:55 Review of Systems ROS Statement: Those systems with pertinent positive or pertinent negative responses have been documented in the HPI. ROS Other: All systems not noted in ROS Statement are negative. Past Medical History Past Medical History: Asthma History of Any Multi-Drug Resistant Organisms: None Reported Past Surgical History: No Surgical Hx Reported Past Psychological History: No Psychological Hx Reported Smoking Status: Current every day smoker Past Alcohol Use History: Occasional Past Drug Use History: Marijuana General Exam Limitations: no limitations General appearance: alert, in no apparent distress Head exam: Present: atraumatic Eye exam: Absent: scleral icterus, conjunctival injection, periorbital swelling ENT exam: Present: mucous membranes moist Expanded Mouth exam: Present: tongue normal, tongue elevation. Absent: drooling, trismus, muffled voice Throat exam: negative: tonsillar erythema, tonsillar exudate, R peritonsillar mass, L peritonsillar mass Neck exam: Present: full ROM. Absent: tenderness, meningismus, lymphadenopathy Respiratory exam: Present: normal lung sounds bilaterally. Absent: respiratory distress, accessory muscle use Cardiovascular Exam: Present: regular rate GI/Abdominal exam: Present: soft. Absent: tenderness Extremities exam: Present: normal capillary refill Back exam: Absent: tenderness, CVA tenderness (R), CVA tenderness (L), vertebral tenderness, rash noted Neurological exam: Present: alert, oriented X3 Psychiatric exam: Present: normal affect, normal mood Skin exam: Present: warm, dry, normal color. Absent: cyanosis, diaphoretic, pallor Course Vital Signs 02/23/22 02/23/22 13:14 14:20 Temperature 98.4 F 98.5 F Pulse Rate 62 52 L Respiratory 16 18 Rate Blood Pressure 110/59 129/71 O2 Sat by Pulse 100 96 Oximetry Medical Decision Making - Medical Decision Making Patient presents with symptoms of viral gastroenteritis. Nausea vomiting diarrhea 3 times yesterday resolved today. Did take Pepto-Bismol with resolution of his symptoms. He states that his employer is requiring a work note so he came to the ER today. Patient denies any pain or discomfort at this time. Denies any hematochezia or hematemesis. Case discussed with Dr. Jenkins Disposition Clinical Impression: Gastroenteritis Disposition: HOME SELF-CARE Condition: Good Instructions (If sedation given, give patient instructions): Gastroenteritis (ED) Additional Instructions: Increase your fluid intake. Follow-up with your primary care doctor as needed. Return to the emergency room with any new or concerning symptoms. Is patient prescribed a controlled substance at d/c from ED?: No Referrals: None,Stated [REFERRING] - 1-2 days Time of Disposition: 14:09
[2022-02-23 14:30] VITALS: BP 129/71; PULSE 52; RESP 18; TEMP 98.5
== END 2022-02-23 14:30 | disposition home or self-care (01) ==
LOC: EC 13:02
DX: K52.9 Noninfective gastroenteritis and colitis, unspecified (principal); J45.909 Unspecified asthma, uncomplicated; F17.200 Nicotine dependence, unspecified, uncomplicated; F12.90 Cannabis use, unspecified, uncomplicated
CPT/HCPCS: 99283